=== PATIENT | female | born 1970 | race American Indian/Alaskan Native ===

== ENCOUNTER → 2025-02-01 | Outpatient (CLI) | payer MEDICAID, SELFPAY ==
--- NOTE | 2025-02-01 12:52 | XR_ITS ---
Examination: Shoulder,right, 3 views Technique: Shoulder AP internal rotation, AP external rotation, Y view shoulder, 3 views Exam date and time :February 01, 2025, 1257 hours INDICATIONS: Pain and decreased range of motion one year. FINDINGS: Moderate to advanced narrowing glenohumeral joint No shoulder fracture or dislocation Moderate right shoulder calcific tendinitis IMPRESSION: Moderate to advanced narrowing glenohumeral joint Moderate right shoulder calcific tendinitis
== END | disposition home or self-care (01) ==
PROVIDERS: PCP Internal Medicine; Referring Provider Internal Medicine; Visit Provider Internal Medicine
DX: M25.811 Other specified joint disorders, right shoulder (principal); M75.31 Calcific tendinitis of right shoulder
CPT/HCPCS: 73030